=== PATIENT | female | born 1970 | race Caucasian/White ===

== ENCOUNTER 2022-08-09 05:42 | Emergency (ER) | payer MEDICAID, SELFPAY ==
[2022-08-09 05:49] VITALS: BP 124/83; PULSE 104; RESP 18; TEMP 36.8; O2SAT 96; BMI 26.6
--- NOTE | 2022-08-09 05:55 | W.ED.NAVMDI ---
HPI - Nausea/Vomiting/Diarrhea General: Chief complaint: General Medical Stated complaint: nausea, Groin pain Time Seen by Provider: 08/09/22 05:53 Source: patient Mode of arrival: ambulatory History of Present Illness: 52-year-old trans female who presents to the emergency room with complaints of groin pain. Began worsening last night, frequency of urination but no burning. Describes feeling hot and cold lightheaded states he cannot drive over 20 miles an hour. Patient mentioned spraying raid weed killer and getting some of it is in his arm or head and a single instance while spraying outside of a camper. Patient denies any trauma. No history of nephrolithiasis. No hematuria. Nausea without vomiting no diarrhea. No bulging in the groin. No precipitating injury that preceded the groin pain. Reported history of nephrolithiasis passed a stone approximately a year ago without any intervention. Patient reports previously on hormone supplementation but stopped 7 months ago, has not restarted. MD elicited complaint: nausea and vomiting Onset (ago): day(s) Associated nausea: Yes Associated abdominal pain: No Pain consistency: intermittent (Bilateral groin) Severity: mild Exacerbating factors: none Relieving factors: none Associated symtoms: Reports nausea; Denies altered mental status, anxiety, bloating, change in vision, chest pain, cough, diaphoresis, decreased urine output, dizziness, dysuria, epistaxis, fatigue, fecal incontinence, fevers/chills, headache(s), anorexia, malaise, myalgias, numbness, palpitations, rash, short of breath, syncope, tenesmus, tinnitus or weakness Review of Systems Const: Reports: chills; Denies: fever(s), fatigue, malaise or diaphoresis Eyes: Denies: change in vision ENMT: Denies: tinnitus or epistaxis Card: Denies: chest pain, palpitations, irregular heart rhythm, edema or syncope Resp: Denies: dyspnea, productive cough or non-productive cough GI: Reports: nausea; Denies: abdominal pain, vomiting, diarrhea, bloating or fecal incontinence : Reports: urinary frequency; Denies: flank pain, difficulty urinating, dysuria or urinary urgency Skin/Breast: Denies: rash or pruritus Neuro: Denies: headache(s) or dizziness Psych: Denies: anxiety PFS ED PFSH: Medical History (Updated 08/09/22 @ 07:24 by Raymundo Lake DO) Nephrolithiasis Surgical History (Updated 08/09/22 @ 06:11 by Raymundo Lake DO) History of cholecystectomy Physical Exam Const: EXAM LIMITATIONS: no altered mental status GENERAL APPEARANCE: cooperative and comfortable ORIENTATION/CONSCIOUSNESS: Yes awake, Yes oriented to person, Yes oriented to place and Yes oriented to time HENMT: COMMON NORMALS: normocephalic, atraumatic and hearing grossly normal bilaterally HEAD & SCALP: normocephalic and atraumatic Resp: COMMON NORMALS: normal respiratory effort, No retractions, No use of accessory muscles and clear to auscultation bilaterally AUSCULTATION: clear to auscultation bilaterally Cardio: COMMON NORMALS: regular rate, regular rhythm and No murmurs present (Cardio) RATE: regular rate RHYTHM: regular rhythm GI: COMMON NORMALS: Soft to palpation and No hepatosplenomegaly present AUSCULTATION: Yes normoactive bowel sounds PALPATION: Yes Soft to palpation, No Tenderness to palpation present (GI), No Guarding due to palpation present (GI) and Yes No hepatosplenomegaly present : OTHER: No evidence of inguinal hernias Extremity: COMMON NORMALS: normal to inspection, capillary refill normal, no clubbing, cyanosis or edema, no calf tenderness and no pedal edema Neuro: SENSORIUM/ORIENTATION: Yes oriented to person, Yes oriented to place and Yes oriented to time Skin: COMMON NORMALS: no rashes or lesions noted GENERAL SKIN EXAM: no rashes or lesions noted Course Vital Signs: Vital signs: Vital Signs Temperature 98.3 F 08/09/22 05:49 Pulse Rate 88 08/09/22 07:17 Respiratory Rate 16 08/09/22 06:01 Blood Pressure 114/86 08/09/22 07:17 Pulse Oximetry 95 08/09/22 07:17 Oxygen Delivery Me thod Room Air 08/09/22 07:17 MDM - Nausea/Vomiting/Diarrhea Medical Decision Making Cystitis. There was a previous visit for urethra-itis in the past patient denies any recent new partners. Patient was given 1 g of Zithromax and thousand of ceftriaxone. Will discharge home on doxycycline 1 p.o. twice daily for 14 days urine culture pending. Follow-up with primary care if not improving Medical Records I reviewed the patient's medical records. Lab Data I reviewed the patient's lab results. 08/09/22 05:55 08/09/22 05:55 Laboratory Results WBC 14.3 10^3/uL (4.0-10.0) H 08/09/22 05:55 RBC 5.64 10^6/uL (4.1-5.3) H 08/09/22 05:55 Hgb 16.1 g/dL (11.7-16.6) 08/09/22 05:55 Hct 47.4 % (42.0-52.0) 08/09/22 05:55 MCV 84.0 fl (80-94) 08/09/22 05:55 MCH 28.5 pg (28.0-34.0) 08/09/22 05:55 MCHC 34.0 g/dL (30.0-36.0) 08/09/22 05:55 RDW 12.7 % (12.1-15.1) 08/09/22 05:55 Plt Count 213 10^3/cmm (130-400) 08/09/22 05:55 MPV 9.8 fL (7.4-10.4) 08/09/22 05:55 Neut % (Auto) 75.5 % 08/09/22 05:55 Lymph % (Auto) 13.9 % 08/09/22 05:55 [place] % (Auto) 9.3 % 08/09/22 05:55 Eos % (Auto) 0.6 % 08/09/22 05:55 Baso % (Auto) 0.3 % 08/09/22 05:55 Neut # (Auto) 10.81 10^3/uL (1.8-7.7) H 08/09/22 05:55 Lymph # (Auto) 2.0 10^3/uL (0.8-4.8) 08/09/22 05:55 [place] # (Auto) 1.3 10^3/uL (0.2-0.9) H 08/09/22 05:55 Eos # (Auto) 0.1 10^3/uL (0.0-0.8) 08/09/22 05:55 Baso # (Auto) 0.0 10^3/uL (0.0-0.1) 08/09/22 05:55 Nucleated RBC % (auto) 0 % 08/09/22 05:55 Nucleated RBCs # 0.0 /100WBC 08/09/22 05:55 Sodium 137 mmol/L (136-145) 08/09/22 05:55 Potassium 3.3 mmol/L (3.5-5.1) L 08/09/22 05:55 Chloride 101 mmol/L (98-107) 08/09/22 05:55 Carbon Dioxide 21 mmol/L (22-29) L 08/09/22 05:55 Anion Gap 18.3 (5-19) 08/09/22 05:55 BUN 13 mg/dL (6-20) 08/09/22 05:55 Creatinine 1.1 mg/dL (0.7-1.2) 08/09/22 05:55 GFR Calculation 70.9 mL/min (90-130) L 08/09/22 05:55 Glucose 120 mg/dL (65-115) H 08/09/22 05:55 Calculated Osmolality 285 mOsm/kg (285-295) 08/09/22 05:55 Calcium 9.9 mg/dL (8.5-10.5) 08/09/22 05:55 Total Bilirubin 1.3 mg/dL (0.15-1.2) H 08/09/22 05:55 AST 23 U/L (0-40) 08/09/22 05:55 ALT 33 U/L (0-41) 08/09/22 05:55 Alkaline Phosphatase 87 U/L (40-130) 08/09/22 05:55 Total Protein 7.8 g/dL (6.6-8.7) 08/09/22 05:55 Albumin 4.4 g/dL (3.5-5.2) 08/09/22 05:55 Globulin 3.4 g/dL (1.3-4.6) 08/09/22 05:55 Lipase 14 U/L (13-60) 08/09/22 05:55 Urine Color Yellow (Yellow) 08/09/22 06:17 Urine Appearance Hazy (CLEAR) A 08/09/22 06:17 Urine pH 5 (5-7) 08/09/22 06:17 Ur Specific [place] 1.020 (1.005-1.030) 08/09/22 06:17 Urine Protein Trace (Negative) 08/09/22 06:17 Urine Glucose (UA) Norm (Normal) 08/09/22 06:17 Urine Ketones Negative (Negative) 08/09/22 06:17 Urine Blood Trace (Negative) H 08/09/22 06:17 Urine Nitrate Negative (Negative) 08/09/22 06:17 Urine Bilirubin Neg (Negative) 08/09/22 06:17 Urine Urobilinogen Norm mg/dL (Negative) 08/09/22 06:17 Ur Leukocyte Esterase 2+ (Negative) H 08/09/22 06:17 Urine RBC 0-4 /hpf (0-2) H 08/09/22 06:17 Urine WBC 80-100 /hpf (0-5) H 08/09/22 06:17 Ur Squamous Epith Cells 0-4 /hpf (0-5) H 08/09/22 06:17 Amorphous Sediment Not Reportable 08/09/22 06:17 Urine Bacteria 1+ /hpf (NONE) H 08/09/22 06:17 Urine Mucus 2+ /hpf 08/09/22 06:17 Discharge Plan Discharge Patient Disposition: Home Clinical Impression: Cystitis Condition: Stable Prescriptions: New doxycycline hyclate 100 mg capsule 100 mg PO BID 14 Days Qty: 28 0RF ondansetron HCl 4 mg tablet 4 mg PO Q6H PRN (Reason: nausea and vomiting) Qty: 20 0RF Discharge Orders: Discharge ED (Routine); Ordered 08/09/22 Ordered By: Raymundo Lake Discharge Diet: Usual diet Discharge Activity: Increase activity as tolerated Patient Instructions: Opioid Safety, Pain Management Activity Restrictions/Additional Instructions: You were seen today with complaints of chills and nausea as well as frequency of urination. Urine showed a bladder infection. You are given an injection of antibiotics in the emergency room and a course of oral antibiotics at the time of discharge. Complete the 14 days. If you are not improving follow-up with your primary care doctor or return to the emergency room. Stand Alone Forms: Work/School Release Coding Level of Care Code ED Corn Husker for Cholo Bhat
--- NOTE | 2022-08-09 06:00 | ECG_ITS ---
[facility] Test Date: 2022-08-09 Pat Name: Natasha Montgomery Department: Room: Gender: Male Physical Therapist Aide: : 1970 Requested By: Raymundo Suárez Order Number: [id number] Leo MD: Bret Haley M.D. Measurements Intervals [place] Rate: 104 P: 34 WA: 128 QRS: -46 QRSD: 128 T: 14 QT: 337 QTc: 444 Interpretive Statements SINUS TACHYCARDIA POSSIBLE RIGHT VENTRICULAR CONDUCTION DELAY [RSR (QR) IN V1/V2] LEFT ANTERIOR FASCICULAR BLOCK [QRS AXIS <= -45, QR IN I, RS IN II] No previous ECG available for comparison Electronically Signed On 08-09-2022 7:09:20 CDT by Bret Haley M.D. [email or web address]/[email or web address]/[id number] f
[2022-08-09 06:01] VITALS: BP 123/87; PULSE 96; RESP 16; O2SAT 96
[2022-08-09 06:05] LABS: Basophils % 0.3 %; Eosinophils # 0.1 10^3/uL (0.0-0.8); Eosinophils % 0.6 %; Hematocrit 47.4 % (42.0-52.0); Hemoglobin 16.1 g/dL (11.7-16.6); Lymphocytes % 13.9 %; Mean Corpuscular Hemoglobin 28.5 pg (28.0-34.0); Mean Platelet Volume 9.8 fL (7.4-10.4); Monocytes # 1.3 10^3/uL (0.2-0.9); Monocytes % 9.3 %; Neutrophils # 10.81 10^3/uL (1.8-7.7); Neutrophils % 75.5 %; Nucleated Red Blood Cells % 0 %; Platelet Count 213 10^3/cmm (130-400); Red Blood Count 5.64 10^6/uL (4.1-5.3); Red Cell Distribution Width 12.7 % (12.1-15.1); White Blood Count 14.3 10^3/uL (4.0-10.0)
[2022-08-09] MEDS: ondansetron 2 mg/ML SDV 2 mL 4 MG IVP (06:15)
[2022-08-09] MEDS: sodium chloride 0.9% 1,000 ML 999 ML IV (06:15)
[2022-08-09 06:23] LABS: Lipase 14 U/L (13-60)
[2022-08-09 06:25] LABS: Alanine Aminotransferase 33 U/L (0-41); Albumin Level 4.4 g/dL (3.5-5.2); Alkaline Phosphatase 87 U/L (40-130); Anion Gap 18.3 (5-19); Aspartate Amino Transferase 23 U/L (0-40); Blood Urea Nitrogen 13 mg/dL (6-20); Calcium 9.9 mg/dL (8.5-10.5); Carbon Dioxide 21 mmol/L (22-29); Chloride 101 mmol/L (98-107); Globulin 3.4 g/dL (1.3-4.6); Glomerular Filtration Rate 70.9 mL/min (90-130); Glucose 120 mg/dL (65-115); Osmolality Calculated 285 mOsm/kg (285-295); Potassium 3.3 mmol/L (3.5-5.1); Sodium 137 mmol/L (136-145); Total Bilirubin 1.3 mg/dL (0.15-1.2); Total Protein 7.8 g/dL (6.6-8.7)
[2022-08-09 07:11] LABS: Add Urine Culture? Yes; Add Urine Microscopic? YES; Bacteria Urine 1+ /hpf; Bilirubin Urine Neg (Negative); Blood Urine Trace (Negative); Glucose Urine UA Norm (Normal); Ketones Urine Negative (Negative); Leukocyte Esterase Urine 2+ (Negative); Mucus Urine 2+ /hpf; Nitrate Urine Negative (Negative); Protein Urine Trace (Negative); RBC Urine 0-4 /hpf (0-2); Squamous Epithelial Cell Urine 0-4 /hpf (0-5); Urine Appearance Hazy (CLEAR); Urine Color Yellow (Yellow); Urobilinogen Urine Norm (Negative); WBC Urine 80-100 /hpf (0-5); pH Urine 5 (5-7)
[2022-08-09 07:17] VITALS: BP 114/86; PULSE 88; O2SAT 95
[2022-08-09] MEDS: cefTRIAXone 1,000 MG in water for injection-sterile 2.1 ML 2.1 MG IM (07:32)
[2022-08-09] MEDS: azithromycin 250 mg Tablet 1000 MG PO (07:32)
--- NOTE | 2022-08-11 12:26 | DCPLANNER ---
Addendum entered by Nat Patel 08/23/22 14:59: Patient had a follow up appointment scheduled with Dr. Lim - patient did attend appointment. Original Note: in flight refueling manager called patient due to no primary care physician, case packer spoke with patient, who stated that she would like help in getting established with a primary care physician. in flight refueling manager called [facility] spoke with Cathi, gave clinic patients information. A follow up appointment was scheduled for August at 10:[address] Lim. in flight refueling manager gave patient the appointment information.
== END 2022-08-09 07:51 | disposition home or self-care (01) ==
PROVIDERS: Emergency Provider Family Medicine
DX: N30.90 Cystitis, unspecified without hematuria (principal)
CPT/HCPCS: 80053; 81001; 83690; 85025; 87077; 87086; 87186; 87491; 87591; 93005; 96361; 96372; 96374; 99284; J0696; J2405; J7030; Q0144

== ENCOUNTER → 2022-09-28 15:45 | Outpatient (BNVA) | payer MEDICAID, SELFPAY | PROVIDERS: PCP Family Medicine; Visit Provider Family Medicine | DX: E87.6 Hypokalemia (principal) | CPT/HCPCS: 80053; 80061 ==

== ENCOUNTER 2022-10-23 21:25 | Emergency (ER) | payer MEDICAID, SELFPAY ==
[2022-10-23 21:48] VITALS: BP 123/85; PULSE 92; RESP 16; TEMP 36.7; O2SAT 96; BMI 25.0
--- NOTE | 2022-10-23 22:01 | XRR_ITS ---
PROCEDURE INFORMATION: Exam: XR Left Shoulder Exam date and time: 10/23/2022 10:08 PM Age: 52 years old Clinical indication: Pain; Shoulder; Left; Additional info: Pain, injury TECHNIQUE: Imaging protocol: Radiologic exam of the left shoulder. Views: 2 or more views. COMPARISON: No relevant prior studies available. FINDINGS: Bones/joints: The glenohumeral joint is intact. Mild degenerative/hypertrophic change of the acromioclavicular joint. No widening of the AC joint. No acute fracture or other acute osseous abnormality. Soft tissues: The soft tissues are unremarkable as demonstrated. XR/XR shoulder LT min 2V* [id number] IMPRESSION: 1. Mild degenerative change of the AC joint. 2. No acute abnormality demonstrated.
--- NOTE | 2022-10-23 22:01 | W.ED.EXTPRO ---
HPI - Extremity Problem General: Chief complaint: Extremity Injury, Upper Stated complaint: Shoulder Pain Time Seen by Provider: 10/23/22 22:00 History of Present Illness: 52-year-old female comes in today with complaints of left shoulder pain. Patient works at [employer] and will had been lifting boxes and loading them yesterday and felt a strain in her left shoulder. Throughout the day patient has had worsening pain and discomfort to the left shoulder. Patient denies any falls or injuries. Patient appears nontoxic. Patient appears in moderate pain. 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 Grandmother Cancer Maternal-breast Father CAD (coronary artery disease) Other Clotting disorder Heart disease Hypertension Stroke Denies family history of Diabetes Dementia Hyperlipidemia Psychiatric illness Chronic kidney disease (CKD) Anesthesia complication Bleeding disorder Lung disease Social History (Updated 08/18/22 @ 10:39 by Yuliet Paz LPN) Smoking and tobacco status: never smoked Alcohol intake: current Alcohol intake frequency: holidays/special occasions only Substance/Drug Use: never Lives independently: Yes Marital status: Single Number of children: 1 Current occupational status: employed 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 Current gender identity: Trans [employer] Special franklin needs: No Agree to transfusion: Yes Physical Exam Const: COMMON NORMALS: alert HENMT: COMMON NORMALS: normocephalic HEAD & SCALP: normocephalic Neck/C-Spine: COMMON NORMALS: full ROM Chest: COMMONS NORMALS: normal palpation of entire chest wall Resp: COMMON NORMALS: normal respiratory effort Cardio: COMMON NORMALS: regular rate RATE: regular rate Extremity: LEFT UPPER EXTREMITY: Yes shoulder joint (AC joint tenderness, decreased range of motion) Neuro: SENSORIUM/ORIENTATION: Yes alert Skin: COMMON NORMALS: turgor normal GENERAL SKIN EXAM: turgor normal Course Vital Signs: Vital signs: Vital Signs Temperature 98.0 F 10/23/22 22:57 Pulse Rate 92 10/23/22 22:57 Respiratory Rate 16 10/23/22 22:57 Blood Pressure 123/85 10/23/22 22:57 Pulse Oximetry 96 10/23/22 22:57 Oxygen Delivery Me thod Room Air 10/23/22 21:48 MDM - Extremity (Nontraumatic) Medical Decision Making 52-year-old female patient that comes in today with complaints of left shoulder pain. On exam patient has tenderness along the AC joint of the left shoulder. Distal pulses and sensation were intact. No acute distress was noted. Differential diagnosis includes not limited to rotator cuff syndrome, AC joint arthritis, bursitis. X-ray of the shoulder noted mild degenerative changes of the AC joint. Patient's exam has significant tenderness of the AC joint. And decreased range of motion due to pain. We will treat patient for inflammation of the AC joint with steroid injection and ketorolac. Patient then will be also be managed with diclofenac twice a day for the next 10 days and recommendations for physical therapy. Patient was given a few hydrocodone for severe pain. Patient reported understanding and agreed to plan. Lab Data Radiology Impressions Shoulder X-Ray 10/23/22 22:01 IMPRESSION: 1. Mild degenerative change of the AC joint. 2. No acute abnormality demonstrated. Discharge Plan Discharge Patient Disposition: Home Clinical Impression: AC joint pain Qualifiers: Laterality: left Qualified Code(s): M25.512 - Pain in left shoulder Condition: Stable Prescriptions: New diclofenac sodium 75 mg tablet,delayed release (DR/EC) 75 mg PO BID Qty: 20 0RF hydrocodone-acetaminophen 5-325 mg tablet 1 tab PO Q6H PRN (Reason: pain (scale score 7-10)) Qty: 7 0RF No Action potassium chloride 20 mEq tablet extended release 20 meq PO DAILY Qty: 30 0RF ondansetron HCl 4 mg tablet 4 mg PO Q6H PRN (Reason: nausea and vomiting) Qty: 20 0RF Discharge Orders: Discharge ED (Routine); Ordered 10/23/22 Ordered By: Axel Easley Referrals: Juan Arredondo MD [Primary Care Provider] - Discharge Diet: Usual diet Discharge Activity: Increase activity as tolerated Patient Instructions: Arthralgia (ED) Activity Restrictions/Additional Instructions: Try to maintain normal activity is much as possible. Use acetaminophen to help with pain. Use diclofenac 75 mg 1 tablet twice a day for pain and inflammation. Use hydrocodone for severe pain. Follow-up with primary care for further instructions. Return to ED for new concerns. Stand Alone Forms: Work/School Release Coding Level of Care Code ED Principal Software Architect for Cholo Bhat
[2022-10-23] MEDS: ketorolac 30 mg/mL INJ IM (22:49)
[2022-10-23] MEDS: dexamethasone 10 mg/mL INJ IM (22:50)
[2022-10-23 22:57] VITALS: BP 123/85; PULSE 92; RESP 16; TEMP 36.7; O2SAT 96
== END 2022-10-23 22:58 | disposition home or self-care (01) ==
PROVIDERS: Emergency Provider Nurse Practitioner Family; PCP Family Medicine
DX: M25.512 Pain in left shoulder (principal); Z79.890 Hormone replacement therapy
CPT/HCPCS: 73030; 96372; 99284; J1100; J1885

== ENCOUNTER 2022-10-29 02:16 | Inpatient (IN) | payer MEDICAID, SELFPAY ==
[2022-10-29] VITALS (11 sets, daily range): BP systolic 100–135; BP diastolic 66–86; PULSE 68–93; RESP 14–22; TEMP 36.6–37.1; O2SAT 95–100; BMI 25.8
--- NOTE | 2022-10-29 02:17 | CTR_ITS ---
PROCEDURE INFORMATION: Exam: CT Abdomen And Pelvis With Contrast Exam date and time: 10/29/2022 2:31 AM Age: 52 years old Clinical indication: Nausea and vomiting; Abdominal pain; Generalized; Prior surgery; Surgery date: 6+ months; Surgery type: Gb; Patient HX: Diffuse abd pain with n/v. TECHNIQUE: Imaging protocol: Computed tomography of the abdomen and pelvis with contrast. Sagittal and coronal reformatted images were created and reviewed. Radiation optimization: All CT scans at this facility use at least one of these dose optimization techniques: automated exposure control; mA and/or kV adjustment per patient size (includes targeted exams where dose is matched to clinical indication); or iterative reconstruction. Contrast material: OMNI 350; Contrast volume: 100 ml; Contrast route: INTRAVENOUS (IV); REPORTING DATA: Count of CT and Cardiac NM exams in prior 12 months: This patient has received 0 known CTs and 0 known cardiac nuclear medicine studies in the 12 months prior to the current study. COMPARISON: No relevant prior studies available. RADIATION DOSE METRICS: Total DLP (mGy-cm): 1357.76 FINDINGS: Lungs: Dependent atelectasis in the lungs bilaterally. Pleural spaces: No pleural effusion. Heart: Visualized portions of the heart are mildly enlarged. Liver: Hypodense focus in the liver that cannot be further characterized on the current examination. This measures 7.8 mm (series 5, image 24). Gallbladder and bile ducts: Patient has had a previous cholecystectomy. No biliary ductal dilatation. Pancreas: Enlargement of the pancreas. Mild peripancreatic inflammatory change and small amount of free fluid, consistent with mild acute pancreatitis. No pancreatic ductal dilatation. Spleen: The spleen is unremarkable. Adrenal glands: The right and left adrenal glands are unremarkable. Kidneys and ureters: Simple cyst in the right kidney measuring 1.5 cm. Nonobstructing stones in the left kidney. The largest measures 4.5 mm. Simple cyst in the left kidney measuring 1.4 cm. The right and left ureters are unremarkable. Stomach and bowel: No acute abnormality in the small bowel. No acute abnormality in the colon. Ingested contents in the stomach. Appendix: Appendix not definitely visualized. No inflammatory changes in the pericecal region however. Intraperitoneal space: No free intraperitoneal air. No ascites. No loculated fluid collections to suggest an abscess. Vasculature: Minimal atherosclerotic changes in the visualized arteries. No evidence for aortic aneurysm or aortic dissection. Hepatic veins, portal veins, splenic vein, and SMV are patent. Lymph nodes: No lymphadenopathy. Urinary bladder: The bladder is unremarkable. Reproductive: The prostate gland is mildly enlarged. Nonspecific parenchymal calcifications in the prostate gland. The left testis is located in the left inguinal canal. There is a calcification in the left inguinal canal. Bones/joints: Mild degenerative changes in the visualized spine. Bone island in the right femoral head. Soft tissues: No acute abnormality in the extra-abdominal soft tissues. CT/CT abdomen pelvis w con* [id number] IMPRESSION: 1. Findings consistent with mild acute pancreatitis. 2. Hypodense focus in the liver that cannot be further characterized on the current examination. In a low-risk patient, this is most likely to be benign and no further follow-up is recommended. In a high-risk patient, follow-up MRI in 3-6 months is recommended (or earlier if warranted by the patient's specific clinical circumstances). (Reference: Hermilo) 3. Nonobstructing left renal stones. 4. The left testis is located in the left inguinal canal. There is a calcification in the left inguinal canal. 5. Incidental/nonacute findings are listed in the report. COMMENTS: Consistent with the [employer]'s Incidental Findings Committee white paper (J Am Froilan Radiol 2018): Any incidental renal lesion less than 1 cm or classified as too small to characterize, or any incidental cystic renal lesion characterized as simple-appearing, is likely benign. No follow-up imaging is recommended for these lesions per consensus recommendations based on imaging criteria. REFERENCES: Hermilo WOODALL, et al. Management of Incidental Liver Lesions on CT: A White Paper of the ACR Incidental Findings Committee. J Am Froilan Radiol. 2017;14(11):4408-1523.
--- NOTE | 2022-10-29 02:25 | ED_ITS ---
HPI - Abdominal Pain General: Chief Complaint: Abdominal Pain Stated Complaint: ABD Pain Time Seen by Provider: 10/29/22 02:18 Source: patient and EMS Mode of arrival: EMS Limitations: no limitations History of Present Illness: 52-year-old male transitioning to female states that he had injured his keanu ulders been taking [place] and tonight he started having abdominal pain he states he had nausea vomiting and right lower quadrant pain. States pain sharp in nature worse with movement and with palpation. He rates the pain a 7 out of 10 denies any fevers. 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 Grandmother Cancer Maternal-breast Father CAD (coronary artery disease) Other Clotting disorder Heart disease Hypertension Stroke Denies family history of Diabetes Dementia Hyperlipidemia Psychiatric illness Chronic kidney disease (CKD) Anesthesia complication Bleeding disorder Lung disease Social History Smoking and tobacco status: never smoked Alcohol intake: current Alcohol intake frequency: holidays/special occasions only Substance/Drug Use: never Lives independently: Yes Marital status: Single Number of children: 1 Current occupational status: employed Current occupation: [employer] Current gender identity: Trans [id number] Special franklin needs: No Agree to transfusion: Yes Physical Exam Const: COMMON NORMALS: no acute distress, patient oriented x3 and healthy appearing HENMT: COMMON NORMALS: normocephalic and atraumatic HEAD & SCALP: normocephalic and atraumatic Eye: COMMON NORMALS: conjunctivae normal CONJUNCTIVA: Yes conjunctivae normal Neck/C-Spine: COMMON NORMALS: supple Chest: COMMONS NORMALS: normal inspection of the chest Resp: COMMON NORMALS: normal respiratory effort Cardio: COMMON NORMALS: regular rate, regular rhythm and No murmurs present (Cardio) RATE: regular rate RHYTHM: regular rhythm GI: COMMON NORMALS: Soft to palpation, non-tender and no masses PALPATION: Yes Soft to palpation and Yes Tenderness to palpation present (GI) Details: RLQ Extremity: COMMON NORMALS: normal to inspection and full ROM Neuro: COMMON NORMALS: patient oriented x3, moves all extremities and no focal motor deficits Psych: COMMON NORMALS: mental status grossly normal, Normal thought process present and cooperative THOUGHT PROCESS: Normal thought process present Skin: COMMON NORMALS: no rashes or lesions noted and no wounds GENERAL SKIN EXAM: no rashes or lesions noted Course Vital Signs: Vital signs: Vital Signs Temperature 98.7 F 10/29/22 02:16 Pulse Rate 91 10/29/22 02:49 Respiratory Rate 18 10/29/22 02:56 Blood Pressure 133/86 10/29/22 02:49 Pulse Oximetry 100 10/29/22 02:56 Oxygen Delivery Me thod Room Air 10/29/22 02:49 MDM - Abdominal Pain Medical Decision Making Patient presents here with pancreatitis triglycerides are normal no signs of biliary obstruction I spoke to the hospitalist will admit at this time. Medical Records I reviewed the patient's medical records. Lab Data I reviewed the patient's lab results. 10/29/22 02:26 10/29/22 02:26 Labs/Radiology: Radiology Impressions Abdomen/Pelvis CT 10/29/22 02:17 IMPRESSION: 1. Findings consistent with mild acute pancreatitis. 2. Hypodense focus in the liver that cannot be further characterized on the current examination. In a low-risk patient, this is most likely to be benign and no further follow-up is recommended. In a high-risk patient, follow-up MRI in 3-6 months is recommended (or earlier if warranted by the patient's specific clinical circumstances). (Reference: Hermilo) 3. Nonobstructing left renal stones. 4. The left testis is located in the left inguinal canal. There is a calcification in the left inguinal canal. 5. Incidental/nonacute findings are listed in the report. COMMENTS: Consistent with the [place] [employer]'s Incidental Findings Committee white paper (J Am Froilan Radiol 2018): Any incidental renal lesion less than 1 cm or classified as too small to characterize, or any incidental cystic renal lesion characterized as simple-appearing, is likely benign. No follow-up imaging is recommended for these lesions per consensus recommendations based on imaging criteria. REFERENCES: Hermilo WOODALL, et al. Management of Incidental Liver Lesions on CT: A White Paper of the ACR Incidental Findings Committee. J Am Froilan Radiol. 2017;14(11):7645-8178. Laboratory Results WBC 14.3 10^3/uL (4.0-10.0) H 10/29/22 02:26 RBC 5.35 10^6/uL (4.1-5.3) H 10/29/22 02:26 Hgb 15.7 g/dL (11.7-16.6) 10/29/22 02:26 Hct 46.3 % (42.0-52.0) 10/29/22 02:26 MCV 86.5 fl (80-94) 10/29/22 02:26 MCH 29.3 pg (28.0-34.0) 10/29/22 02:26 MCHC 33.9 g/dL (30.0-36.0) 10/29/22 02:26 RDW 12.9 % (12.1-15.1) 10/29/22 02:26 Plt Count 229 10^3/cmm (130-400) 10/29/22 02:26 MPV 10.1 fL (7.4-10.4) 10/29/22 02:26 Neut % (Auto) 87.8 % 10/29/22 02:26 Lymph % (Auto) 6.0 % 10/29/22 02:26 [place] % (Auto) 5.2 % 10/29/22 02:26 Eos % (Auto) 0.3 % 10/29/22 02:26 Baso % (Auto) 0.2 % 10/29/22 02:26 Neut # (Auto) 12.55 10^3/uL (1.8-7.7) H 10/29/22 02:26 Lymph # (Auto) 0.9 10^3/uL (0.8-4.8) 10/29/22 02:26 [place] # (Auto) 0.7 10^3/uL (0.2-0.9) 10/29/22 02:26 Eos # (Auto) 0.1 10^3/uL (0.0-0.8) 10/29/22 02:26 Baso # (Auto) 0.0 10^3/uL (0.0-0.1) 10/29/22 02:26 Nucleated RBC % (auto) 0 % 10/29/22 02:26 Nucleated RBCs # 0.0 /100WBC 10/29/22 02:26 Sodium 136 mmol/L (136-145) 10/29/22 02:26 Potassium 4.0 mmol/L (3.5-5.1) 10/29/22 02:26 Chloride 101 mmol/L (98-107) 10/29/22 02:26 Carbon Dioxide 24 mmol/L (22-29) 10/29/22 02:26 Anion Gap 15.0 (5-19) 10/29/22 02:26 BUN 11 mg/dL (6-20) 10/29/22 02:26 Creatinine 1.0 mg/dL (0.7-1.2) 10/29/22 02:26 GFR Calculation 79.1 mL/min (90-130) L 10/29/22 02:26 Glucose 117 mg/dL (65-115) H 10/29/22 02:26 Calculated Osmolality 282 mOsm/kg (285-295) L 10/29/22 02:26 Calcium 8.8 mg/dL (8.5-10.5) 10/29/22 02:26 Total Bilirubin 0.7 mg/dL (0.15-1.2) 10/29/22 02:26 AST 25 U/L (0-40) 10/29/22 02:26 ALT 42 U/L (0-41) H 10/29/22 02:26 Alkaline Phosphatase 73 U/L (40-130) 10/29/22 02:26 Total Protein 7.4 g/dL (6.6-8.7) 10/29/22 02:26 Albumin 4.5 g/dL (3.5-5.2) 10/29/22 02:26 Globulin 2.9 g/dL (1.3-4.6) 10/29/22 02:26 Triglycerides 130 mg/dL (0-150) 10/29/22 02:26 Lipase > 6503 U/L (13-60) H 10/29/22 02:26 Urine Color Yellow (Yellow) 10/29/22 02:53 Urine Appearance Clear (CLEAR) 10/29/22 02:53 Urine pH 9 (5-7) H 10/29/22 02:53 Ur Specific [place] 1.010 (1.005-1.030) 10/29/22 02:53 Urine Protein Neg (Negative) 10/29/22 02:53 Urine Glucose (UA) Norm (Normal) 10/29/22 02:53 Urine Ketones 1+ (Negative) H 10/29/22 02:53 Urine Blood Neg (Negative) 10/29/22 02:53 Urine Nitrate Negative (Negative) 10/29/22 02:53 Urine Bilirubin Neg (Negative) 10/29/22 02:53 Prot Sulfosalicylic Acd Negative (Negative) 10/29/22 02:53 Urine Urobilinogen Norm mg/dL (Negative) 10/29/22 02:53 Ur Leukocyte Esterase Trace (Negative) H 10/29/22 02:53 Urine RBC None /hpf (0-2) 10/29/22 02:53 Urine WBC 0-4 /hpf (0-5) H 10/29/22 02:53 Ur Squamous Epith Cells 5-10 /hpf (0-5) H 10/29/22 02:53 Amorphous Sediment Not Reportable 10/29/22 02:53 Urine Bacteria Trace /hpf (NONE) 10/29/22 02:53 Ethyl Alcohol < 10 mg/dL (0-10) 10/29/22 02:26 Discharge Plan Discharge Patient Disposition: Admitted As Inpatient Clinical Impression: Pancreatitis Condition: Stable Coding Level of Care Code ED Regulatory Affairs Internship for [facility]
[2022-10-29] MEDS: iohexol 350 mg/mL 500 mL Btl (per mL) IV (02:32)
[2022-10-29 02:33] LABS: Basophils % 0.2 %; Eosinophils # 0.1 10^3/uL (0.0-0.8); Eosinophils % 0.3 %; Hematocrit 46.3 % (42.0-52.0); Hemoglobin 15.7 g/dL (11.7-16.6); Lymphocytes # 0.9 10^3/uL (0.8-4.8); Mean Corpuscular HGB Conc 33.9 g/dL (30.0-36.0); Mean Corpuscular Hemoglobin 29.3 pg (28.0-34.0); Mean Corpuscular Volume 86.5 fl (80-94); Mean Platelet Volume 10.1 fL (7.4-10.4); Monocytes # 0.7 10^3/uL (0.2-0.9); Monocytes % 5.2 %; Neutrophils # 12.55 10^3/uL (1.8-7.7); Neutrophils % 87.8 %; Nucleated Red Blood Cells % 0 %; Platelet Count 229 10^3/cmm (130-400); Red Blood Count 5.35 10^6/uL (4.1-5.3); Red Cell Distribution Width 12.9 % (12.1-15.1); White Blood Count 14.3 10^3/uL (4.0-10.0)
[2022-10-29 02:50] LABS: Alanine Aminotransferase 42 U/L (0-41); Albumin Level 4.5 g/dL (3.5-5.2); Alkaline Phosphatase 73 U/L (40-130); Aspartate Amino Transferase 25 U/L (0-40); Blood Urea Nitrogen 11 mg/dL (6-20); Calcium 8.8 mg/dL (8.5-10.5); Carbon Dioxide 24 mmol/L (22-29); Chloride 101 mmol/L (98-107); Creatinine Clr Calc Pharmacy 89.8555; Globulin 2.9 g/dL (1.3-4.6); Glomerular Filtration Rate 79.1 mL/min (90-130); Glucose 117 mg/dL (65-115); Osmolality Calculated 282 mOsm/kg (285-295); Sodium 136 mmol/L (136-145); Total Bilirubin 0.7 mg/dL (0.15-1.2); Total Protein 7.4 g/dL (6.6-8.7)
[2022-10-29] MEDS: ondansetron 2 mg/ML SDV 2 mL 4 MG IVP ×2 (02:54→15:48)
[2022-10-29] MEDS: HYDROmorphone 1 mg/mL INJ 1 mL 0.5 MG IVP (02:56)
[2022-10-29 03:05] LABS: Bilirubin Urine Neg (Negative); Blood Urine Neg (Negative); Glucose Urine UA Norm (Normal); Ketones Urine 1+ (Negative); Leukocyte Esterase Urine Trace (Negative); Nitrate Urine Negative (Negative); Protein Urine Neg (Negative); Urine Appearance Clear (CLEAR); Urine Color Yellow (Yellow); Urobilinogen Urine Norm (Negative); pH Urine 9 (5-7)
[2022-10-29 03:06] LABS: Add Urine Microscopic? YES; Sulfosalicylic Acid Urine Negative (Negative)
[2022-10-29 03:08] LABS: Bacteria Urine TRACE /hpf; WBC Urine 0-4 /hpf (0-5)
[2022-10-29 03:33] LABS: Triglycerides 130 mg/dL (0-150)
[2022-10-29 03:36] LABS: Alcohol Level < 10 mg/dL (0-10)
--- NOTE | 2022-10-29 04:42 | P.HP_ITS ---
Providers/Chief Complaint Admitting Physician: Mahad Oconnell MD Primary Care Provider: Juan Arredondo MD Chief Complaint: ABD Pain History of Present Illness Natasha Montgomery is a 52 year old presenting complaining of abdominal pain for the last day, with nausea and vomiting. Most of the discomfort is in the epigastric area. No hematemesis, blood in stool, black or tarry stool. Had similar episode before her gallbladder was removed. No fever. Denies any alcohol intake. Recently having some shoulder pain and took a hydrocodone, and was worried this that caused the pancreatitis. Review of Systems General: Reports: 10 or more systems reviewed and unremarkable except in HPI and below Card: Denies: chest pain Resp: Denies: dyspnea GI: Reports: abdominal pain, nausea and vomiting; Denies: hematemesis, hematochezia or melena Medications/Allergies Home Medications Medication Instructions Recorded Confirmed Last Taken Type ondansetron HCl 4 mg tablet 4 mg PO Q6H PRN nausea and 08/09/22 08/18/22 Unknown Rx vomiting #20 tabs potassium chloride 20 mEq 20 meq PO DAILY #30 tabs 08/18/22 08/18/22 Unknown Rx tablet,extended release diclofenac sodium 75 mg 75 mg PO BID #20 tabs 10/23/22 Unknown Rx tablet,delayed release hydrocodone 5 mg-acetaminophen 325 1 tab PO Q6H PRN pain (scale score 10/23/22 Unknown Rx mg tablet 7-10) #7 tabs Allergies Allergy/AdvReac Type Severity Reaction Status Date / Time VANILLA HADLEY Allergy ALGY-Difficulty Uncoded 10/23/22 21:48 Breathing PFSH Acute PFSH: Medical History Hypoglycemia Nephrolithiasis Transgender man on hormone therapy Surgical History History of cholecystectomy History of ear surgery cosmetic Family History Family/Other Cancer Maternal aunt-unknown Mother No problems noted. Grandmother Cancer Maternal-breast Father CAD (coronary artery disease) Other Clotting disorder Heart disease Hypertension Stroke Denies family history of Diabetes Dementia Hyperlipidemia Psychiatric illness Chronic kidney disease (CKD) Anesthesia complication Bleeding disorder Lung disease Social History Smoking and tobacco status: never smoked Alcohol intake: current Alcohol intake frequency: holidays/special occasions only Substance/Drug Use: never Lives independently: Yes Marital status: Single Number of children: 1 Current occupational status: employed Current occupation: [employer] Current gender identity: Trans [id number] Special franklin needs: No Agree to transfusion: Yes Vitals/I&O/Wt Last Vital Signs Temp 98.7 F 10/29/22 04:37 Pulse 93 10/29/22 04:37 Resp 20 H 10/29/22 04:37 BP 117/81 10/29/22 04:37 Pulse Ox 95 10/29/22 04:37 O2 Del Method Room Air 10/29/22 04:37 Weight last 48 hrs Weight 77.111 kg Physical Exam Narrative: General exam, patient complaining of significant abdominal pain HEENT: Atraumatic and normocephalic. Pupils equally round. Oropharynx clear. Neck is supple no lymphadenopathy thyromegaly Cardiovascular regular rate and rhythm, no murmur Lungs clear no wheezing or crackles Abdomen tenderness epigastric area. Positive bowel sounds. exam was deferred Extremities no cyanosis clubbing or edema, cap refill brisk Skin no rash Data 10/29/22 02:26 10/29/22 02:26 Other Labs: LFTs are normal with exception of ALT 42 Lipase greater than 6500 Urinalysis 0-4 whites, 5-10 squamous Alcohol level less than [address] which I reviewed demonstrates pancreatic inflammation. There is also note on the report regarding a hypodense focus in the liver, consider fo llow-up, and nonobstructing left renal stones. Left testes is also noted to be in the inguinal canal A&P Assessment and plan (1) Pancreatitis: Clear liquids Nausea control Pain control with morphine Assess risk factors. In regards to medicine she is also on Aldactone and estradiol. Estradiol and diclofenac appears to be occasionally associated with pancreatitis on an Epocrates search. Denies any chronic alcohol use or even a drink of alcohol in the last several years. Triglyceride level was checked and normal Repeat electrolytes and lipase in the morning Plan Other medical problems as outlined in past medical history Full code Lovenox for DVT prophylaxis Attestations Medical Necessity Statement*: Will need greater than 2 midnight stay for evaluation and treatment of acute pancreatitis Diagnoses Pancreatitis K85.90 Time Spent (min) 35
[2022-10-29] MEDS: sodium chloride 0.9% 1,000 ML 125 ML IV ×3 (05:00→20:39)
[2022-10-29] MEDS: enoxaparin 40 mg/0.4 mL Syringe SUBCUT (05:02)
[2022-10-29] MEDS: pantoprazole 40 mg SDV IVP (05:29)
[2022-10-29] MEDS: morphine 4 mg/mL SDV 1 mL 2 MG IVP ×3 (05:46→19:48)
[2022-10-29] MEDS: acetaminophen 325 mg Tablet 650 MG PO (08:30)
[2022-10-29] MEDS: HYDROcodone-acetaminophen 5-325 mg Tablet 1 TAB PO ×2 (09:20→18:03)
--- NOTE | 2022-10-29 17:58 | PC.NURSE ---
Patient took home meds from purse, Estradiol 2mg and Spironolactone 50mg. Patient notified nurse at the time of this note, but was uncertain about the time meds were taken.
[2022-10-30] VITALS (7 sets, daily range): BP systolic 107–115; BP diastolic 67–76; PULSE 71–93; RESP 16–20; TEMP 36.2–37.1; O2SAT 93–98
[2022-10-30] MEDS: ondansetron 2 mg/ML SDV 2 mL 4 MG IVP (00:44)
[2022-10-30] MEDS: HYDROcodone-acetaminophen 5-325 mg Tablet 1 TAB PO ×4 (00:45→20:24)
[2022-10-30 04:10] LABS: Basophils % 0.2 %; Eosinophils # 0.1 10^3/uL (0.0-0.8); Eosinophils % 1.3 %; Hematocrit 41.6 % (42.0-52.0); Hemoglobin 13.9 g/dL (11.7-16.6); Lymphocytes # 0.9 10^3/uL (0.8-4.8); Lymphocytes % 9.8 %; Mean Corpuscular HGB Conc 33.4 g/dL (30.0-36.0); Mean Corpuscular Hemoglobin 29.8 pg (28.0-34.0); Mean Corpuscular Volume 89.1 fl (80-94); Mean Platelet Volume 9.8 fL (7.4-10.4); Monocytes # 0.7 10^3/uL (0.2-0.9); Monocytes % 7.5 %; Neutrophils # 7.69 10^3/uL (1.8-7.7); Neutrophils % 80.8 %; Nucleated Red Blood Cells % 0 %; Platelet Count 161 10^3/cmm (130-400); Red Blood Count 4.67 10^6/uL (4.1-5.3); Red Cell Distribution Width 13.5 % (12.1-15.1); White Blood Count 9.5 10^3/uL (4.0-10.0)
[2022-10-30 04:35] LABS: Alanine Aminotransferase 76 U/L (0-41); Albumin Level 3.4 g/dL (3.5-5.2); Alkaline Phosphatase 91 U/L (40-130); Aspartate Amino Transferase 58 U/L (0-40); Blood Urea Nitrogen 6 mg/dL (6-20); Calcium 7.4 mg/dL (8.5-10.5); Carbon Dioxide 21 mmol/L (22-29); Chloride 109 mmol/L (98-107); Globulin 2.1 g/dL (1.3-4.6); Glomerular Filtration Rate 89.3 mL/min (90-130); Glucose 81 mg/dL (65-115); Osmolality Calculated 281 mOsm/kg (285-295); Sodium 137 mmol/L (136-145); Total Bilirubin 0.6 mg/dL (0.15-1.2); Total Protein 5.5 g/dL (6.6-8.7)
[2022-10-30 04:44] LABS: Lipase 296 U/L (13-60)
[2022-10-30] MEDS: sodium chloride 0.9% 1,000 ML 125 ML IV ×3 (04:44→22:13)
[2022-10-30] MEDS: enoxaparin 40 mg/0.4 mL Syringe SUBCUT (04:45)
[2022-10-30] MEDS: pantoprazole 40 mg SDV IVP (05:00)
--- NOTE | 2022-10-30 17:32 | PM.PN ---
Subjective Subjective: Patient has continued to complain of abdominal pain, nausea has improved no vomiting.He was also complaining of generalized body pain. Medications: Medication Review Details: Generic Name Dose Route Start Last Admin Trade Name Ha PRN Reason Stop Dose Admin Acetaminophen 650 mg 10/29/22 04:39 10/29/22 08:30 Acetaminophen 32 5 Mg Tablet PO 650 mg Q6H PRN Administration Mild/Mod Pain Or Temp >/= 101 Hydrocodone Bitart /Acetaminophen 1 tab 10/29/22 08:48 10/30/22 15:05 Hydrocodone-Acet aminophen 5-325 Mg Tablet PO 1 tab Q4H PRN Administration MODERATE PAIN Enoxaparin Sodium 40 mg 10/29/22 04:45 10/30/22 04:45 Enoxaparin 40 Mg /0.4 Ml Syringe SUBCUT 40 mg Q24H TERRENCE Administration Sodium Chloride 1,000 mls @ 125 m ls/hr 10/29/22 04:45 10/30/22 14:50 Sodium Chloride 0.9% IV 125 mls/hr .Q8H TERRENCE Administration Morphine Sulfate 2 mg 10/29/22 04:39 10/29/22 19:48 Morphine 4 Mg/Ml Sdv 1 Ml IVP 2 mg Q4H PRN Administration SEVERE PAIN Ondansetron HCl 4 mg 10/29/22 04:39 10/30/22 00:44 Ondansetron 2 Mg /Ml Sdv 2 Ml IVP 4 mg Q6H PRN Administration vomiting, or N/V if npo Pantoprazole Sodiu m 40 mg 10/29/22 04:45 10/30/22 05:00 Pantoprazole 40 Mg Sdv IVP 40 mg Q24H TERRENCE Administration Vitals/I&O/Wt Last Vital Signs Temp 97.3 F L 10/30/22 12:00 Pulse 92 10/30/22 12:00 Resp 18 10/30/22 12:00 BP 111/76 10/30/22 12:00 Pulse Ox 93 10/30/22 12:00 O2 Del Method Room Air 10/30/22 12:00 10/30/22 10/30/22 10/30/22 06:59 14:59 22:59 Intake Total 1000 / 3916.250 1480 / 1480 Output Total 1440 / 2740 1450 / 1450 Balance -440 / 1176.250 30 / 30 Weight last 48 hrs Weight 77.111 kg Physical Exam HENMT: COMMON NORMALS: normocephalic and atraumatic HEAD & SCALP: normocephalic and atraumatic Resp: COMMON NORMALS: clear to auscultation bilaterally EFFORT & INSPECTION: Yes symmetric chest movement AUSCULTATION: clear to auscultation bilaterally Cardio: COMMON NORMALS: regular rate, regular rhythm, S1 normal heart sound present, S2 normal heart sound present, No gallops present (Cardio), No murmurs present (Cardio), No rub (Cardio) and Peripheral pulses 2+ throughout RATE: regular rate RHYTHM: regular rhythm HEART SOUNDS: S1 normal heart sound present and S2 normal heart sound present PERIPHERAL PULSES: Peripheral pulses 2+ throughout GI: RECTAL EXAM: Yes deferred OTHER: Epigastric abdominal tenderness present. Extremity: COMMON NORMALS: no clubbing, cyanosis or edema and no pedal edema Data 10/30/22 03:33 10/30/22 03:33 A&P Assessment and plan (1) Pancreatitis: Diet has been advanced to GI soft. Nausea control Pain control with morphine Assess risk factors. In regards to medicine she is also on Aldactone and estradiol. Estradiol and diclofenac appears to be occasionally associated with pancreatitis on an Epocrates search. Denies any chronic alcohol use or even a drink of alcohol in the last several years. Triglyceride level was checked and normal Repeat electrolytes and lipase in the morning Plan Other medical problems as outlined in past medical history Full code Lovenox for DVT prophylaxis Attestations Medical Necessity Statement*: Needs to be in hospital for the management of acute pancreatitis need for pain control. Coding Level of Care Code Acute Code for [facility] Diagnoses Pancreatitis K85.90
[2022-10-30] MEDS: morphine 4 mg/mL SDV 1 mL 2 MG IVP (22:28)
[2022-10-31] VITALS (10 sets, daily range): BP systolic 106–122; BP diastolic 67–82; PULSE 74–90; RESP 16–18; TEMP 36.9–37.4; O2SAT 94–97
[2022-10-31] MEDS: HYDROcodone-acetaminophen 5-325 mg Tablet 1 TAB PO ×5 (01:06→20:38)
[2022-10-31] MEDS: morphine 4 mg/mL SDV 1 mL 2 MG IVP ×4 (02:19→23:21)
[2022-10-31] MEDS: pantoprazole 40 mg SDV IVP (04:09)
[2022-10-31] MEDS: enoxaparin 40 mg/0.4 mL Syringe SUBCUT (04:10)
[2022-10-31] MEDS: sodium chloride 0.9% 1,000 ML 125 ML IV ×3 (05:53→21:29)
--- NOTE | 2022-10-31 14:31 | XRR_ITS ---
PROCEDURE INFORMATION: Exam: XR Abdomen Exam date and time: 10/31/2022 2:49 PM Age: 52 years old Clinical indication: Abdominal pain; Generalized; Additional info: Evaluate for ileus TECHNIQUE: Imaging protocol: Radiologic exam of the abdomen. Views: Frontal supine view of the abdomen. 1 View. COMPARISON: CT abdomen pelvis w con* [id number] 10/29/2022 2:31 AM FINDINGS: Gastrointestinal tract: Gas and stool within the colon predominantly with moderate stool in the right colon and mild increased gas in the transverse colon. No abnormal, dilated small bowel or obstruction. Intraperitoneal space: Surgical clips in the right upper quadrant. No indication of free air. Bones/joints: No acute osseous abnormality. XR/XR abdomen 1V* [id number] IMPRESSION: Nonspecific nonobstructive bowel gas pattern with moderate stool in the right colon and mild increased gas in the transverse colon. No significant ileus or obstruction otherwise.
--- NOTE | 2022-10-31 14:33 | PM.PN ---
Subjective Subjective: Complains of worsened abdominal pain. Radiating into back. Not adequately controlled with morphine today. Tmax 99 Fahrenheit. Feels nauseous but has not vomited. No bowel movement but passing flatus. Medications: Reviewed: Yes Medication Review Details: Generic Name Dose Route Start Last Admin Trade Name Freq PRN Reason Stop Dose Admin Acetaminophen 650 mg 10/29/22 04:39 10/29/22 08:30 Acetaminophen 32 5 Mg Tablet PO 650 mg Q6H PRN Administration Mild/Mod Pain Or Temp >/= 101 Hydrocodone Bitart /Acetaminophen 1 tab 10/29/22 08:48 10/30/22 15:05 Hydrocodone-Acet aminophen 5-325 Mg Tablet PO 1 tab Q4H PRN Administration MODERATE PAIN Enoxaparin Sodium 40 mg 10/29/22 04:45 10/30/22 04:45 Enoxaparin 40 Mg /0.4 Ml Syringe SUBCUT 40 mg Q24H TERRENCE Administration Sodium Chloride 1,000 mls @ 125 m ls/hr 10/29/22 04:45 10/30/22 14:50 Sodium Chloride 0.9% IV 125 mls/hr .Q8H TERRENCE Administration Morphine Sulfate 2 mg 10/29/22 04:39 10/29/22 19:48 Morphine 4 Mg/Ml Sdv 1 Ml IVP 2 mg Q4H PRN Administration SEVERE PAIN Ondansetron HCl 4 mg 10/29/22 04:39 10/30/22 00:44 Ondansetron 2 Mg /Ml Sdv 2 Ml IVP 4 mg Q6H PRN Administration vomiting, or N/V if npo Pantoprazole Sodiu m 40 mg 10/29/22 04:45 10/30/22 05:00 Pantoprazole 40 Mg Sdv IVP 40 mg Q24H TERRENCE Administration Vitals/I&O/Wt Last Vital Signs Temp 99.0 F 10/31/22 10:39 Pulse 90 10/31/22 10:39 Resp 17 10/31/22 10:39 BP 120/78 10/31/22 10:39 Pulse Ox 94 10/31/22 10:39 O2 Del Method Room Air 10/31/22 10:39 10/30/22 10/31/22 10/31/22 22:59 06:59 14:59 Intake Total 1602.917 / 3082.917 1125 / 4207.917 1831.667 / 1831.667 Output Total 400 / 1850 1375 / 3225 850 / 850 Balance 1202.917 / 1232.917 -250 / 982.917 981.667 / 981.667 Physical Exam Narrative: General: Sitting on side of bed, complaining of pain HEENT: PERRLA, pupils bilaterally equal and reactive, pallors not present Chest: Normal vesicular breath sounds, no added sounds, equal good air entry bilaterally CVS: S1-S2 regular, no murmurs, no tachycardia, no gallops, no rubs Abdomen: Soft, mildly distended, tender to palpation in the epigastric region Neuro: No focal deficits, no facial deformity, AO x3, power 5/5 in all limbs Data 10/30/22 03:33 10/30/22 03:33 A&P Assessment and plan (1) Pancreatitis: Diet has been advanced to GI soft yesterday, however patient complaining of worsening pain today. Change back to clear liquid diet as tolerated. Add Toradol 15 mg IV every 8 hours for pain management. Continue morphine 2 mg IV every 4 hours as needed in addition to p.o. Dilaudid. If pain fails to respond appropriately will likely consider adding fentanyl patch. Nausea persisting with IV Zofran, will add Reglan as needed. Patient is passing flatus, however has not had a bowel movement. On abdominal exam today she noted noted to be slightly distended, will check abdominal x-ray to evaluate for any developing ileus in the interim. Tmax 99 Fahrenheit, will monitor for interim development of any fevers. Unclear precipitant of acute pancreatitis currently. Patient denies using any alcohol recently. Triglyceride within range. CT of the abdomen shows postcholecystectomy state without dilatation of the biliary system. LFTs are noted to be trending up today slightly, will closely monitor, with any increase in T. bili or alkaline phosphatase will consider MRCP. Continue normal saline at 125 cc an hour Plan Full code Lovenox for DVT prophylaxis Continue Protonix 40 mg IV every 24 hours Attestations Medical Necessity Statement*: Needs continued admission for management of pain associated with acute pancreatitis, still needing IV pain medication, abdominal noted to be distended today, needs imaging to evaluate for developing ileus. Change diet back to clear liquid Coding Level of Care Code Acute Code for [facility] Diagnoses Pancreatitis K85.90
[2022-10-31] MEDS: ketorolac 30 mg/mL INJ 15 MG IVP (20:46)
[2022-11-01] VITALS (11 sets, daily range): BP systolic 105–140; BP diastolic 69–80; PULSE 73–87; RESP 16–18; TEMP 36.4–37; O2SAT 93–97
[2022-11-01] MEDS: HYDROcodone-acetaminophen 5-325 mg Tablet 1 TAB PO ×3 (01:41→08:58)
[2022-11-01] MEDS: morphine 4 mg/mL SDV 1 mL 2 MG IVP ×3 (03:45→18:28)
[2022-11-01] MEDS: enoxaparin 40 mg/0.4 mL Syringe SUBCUT (03:46)
[2022-11-01] MEDS: pantoprazole 40 mg SDV IVP (03:46)
[2022-11-01] MEDS: sodium chloride 0.9% 1,000 ML 125 ML IV ×3 (05:00→22:16)
[2022-11-01] MEDS: ketorolac 30 mg/mL INJ 15 MG IVP ×3 (05:00→22:45)
[2022-11-01 06:40] LABS: Basophils % 0.2 %; Eosinophils # 0.2 10^3/uL (0.0-0.8); Hematocrit 39.9 % (42.0-52.0); Hemoglobin 13.1 g/dL (11.7-16.6); Lymphocytes # 0.9 10^3/uL (0.8-4.8); Lymphocytes % 9.8 %; Mean Corpuscular HGB Conc 32.8 g/dL (30.0-36.0); Mean Corpuscular Volume 88.5 fl (80-94); Mean Platelet Volume 9.7 fL (7.4-10.4); Monocytes # 0.8 10^3/uL (0.2-0.9); Monocytes % 9.7 %; Neutrophils # 6.77 10^3/uL (1.8-7.7); Neutrophils % 77.7 %; Nucleated Red Blood Cells % 0 %; Platelet Count 173 10^3/cmm (130-400); Red Blood Count 4.51 10^6/uL (4.1-5.3); Red Cell Distribution Width 13.7 % (12.1-15.1); White Blood Count 8.7 10^3/uL (4.0-10.0)
[2022-11-01 07:05] LABS: Alanine Aminotransferase 39 U/L (0-41); Albumin Level 3.3 g/dL (3.5-5.2); Alkaline Phosphatase 114 U/L (40-130); Anion Gap 12.7 (5-19); Aspartate Amino Transferase 17 U/L (0-40); Blood Urea Nitrogen 6 mg/dL (6-20); Calcium 7.5 mg/dL (8.5-10.5); Carbon Dioxide 19 mmol/L (22-29); Chloride 108 mmol/L (98-107); Creatinine Clr Calc Pharmacy 112.3194; Globulin 2.2 g/dL (1.3-4.6); Glomerular Filtration Rate 102.3 mL/min (90-130); Glucose 140 mg/dL (65-115); Osmolality Calculated 282 mOsm/kg (285-295); Potassium 3.7 mmol/L (3.5-5.1); Sodium 136 mmol/L (136-145); Total Bilirubin 0.6 mg/dL (0.15-1.2); Total Protein 5.5 g/dL (6.6-8.7)
--- NOTE | 2022-11-01 13:21 | PC.NURSE ---
Patient discharged to home with tennis shoes and cell phone, accompanied by sister. Ambulated to vehicle outside, no s/s of distress. Discharge information given to patient, patient verbalized understanding of diet restrictions until told otherwise by surgeon at [facility] in [place].
[2022-11-01] MEDS: fentaNYL 25 mcg Patch 1 PATCH TRANSDERMA (13:48)
--- NOTE | 2022-11-01 14:43 | PC.NURSE ---
patient needs to contact security before discharge to collect belongings
--- NOTE | 2022-11-01 18:21 | PM.PN ---
Subjective Subjective: States that she is still continuing to have pain in spite of adding the IV Toradol to already receiving IV morphine. Does not have an appetite though did not vomit for clear diet. Passing flatus. Abdominal x-ray taken yesterday showed nonspecific obstructive bowel gas pattern with moderate stool in the right colon and increased gas in the transverse colon. No significant ileus or obstruction was noted otherwise. Medications: Reviewed: Yes Medication Review Details: Generic Name Dose Route Start Last Admin Trade Name Freq PRN Reason Stop Dose Admin Acetaminophen 650 mg 10/29/22 04:39 10/29/22 08:30 Acetaminophen 32 5 Mg Tablet PO 650 mg Q6H PRN Administration Mild/Mod Pain Or Temp >/= 101 Hydrocodone Bitart /Acetaminophen 1 tab 10/29/22 08:48 10/30/22 15:05 Hydrocodone-Acet aminophen 5-325 Mg Tablet PO 1 tab Q4H PRN Administration MODERATE PAIN Enoxaparin Sodium 40 mg 10/29/22 04:45 10/30/22 04:45 Enoxaparin 40 Mg /0.4 Ml Syringe SUBCUT 40 mg Q24H TERRENCE Administration Sodium Chloride 1,000 mls @ 125 m ls/hr 10/29/22 04:45 10/30/22 14:50 Sodium Chloride 0.9% IV 125 mls/hr .Q8H TERRENCE Administration Morphine Sulfate 2 mg 10/29/22 04:39 10/29/22 19:48 Morphine 4 Mg/Ml Sdv 1 Ml IVP 2 mg Q4H PRN Administration SEVERE PAIN Ondansetron HCl 4 mg 10/29/22 04:39 10/30/22 00:44 Ondansetron 2 Mg /Ml Sdv 2 Ml IVP 4 mg Q6H PRN Administration vomiting, or N/V if npo Pantoprazole Sodiu m 40 mg 10/29/22 04:45 10/30/22 05:00 Pantoprazole 40 Mg Sdv IVP 40 mg Q24H TERRENCE Administration Vitals/I&O/Wt Last Vital Signs Temp 97.8 F 11/03/22 16:39 Pulse 80 11/03/22 16:39 Resp 16 11/03/22 16:39 BP 114/77 11/03/22 16:39 Pulse Ox 94 11/03/22 16:39 O2 Del Method Room Air 11/03/22 12:00 Physical Exam Narrative: General: No acute distress, AO x3 HEENT: PERRLA, pupils bilaterally equal and reactive, pallors not present Chest: Normal vesicular breath sounds, no added sounds, equal good air entry bilaterally CVS: S1-S2 regular, no murmurs, no tachycardia, no gallops, no rubs Abdomen: Soft, nontender, no organomegaly, bowel sounds present Neuro: No focal deficits, no facial deformity, AO x3, power 5/5 in all limbs Data 11/01/22 02:55 11/01/22 02:55 A&P Assessment and plan (1) Pancreatitis: Pain is continued, will add fentanyl 25mcg transdermal patch. Less nauseous, has not had any vomiting, however does not wish to advnce diet yet Continue Toradol 15 mg IV every 8 hours for pain management in addition to iv morphine Nausea control with IV Zofran and Reglan alternating Patient is passing flatus, however has not had a bowel movement. X-ray of her abdomen performed on 10/31 showed nonspecific nonobstructive bowel gas pattern with moderate stool in the right colon. No ileus or evy obstruction Unclear precipitant of acute pancreatitis currently. Plan Full code Lovenox for DVT prophylaxis Continue Protonix 40 mg IV every 24 hours Attestations Medical Necessity Statement*: pain management needs to be optimized, add fentanyl patch , needs to advnace diet Coding Level of Care Code Acute Code for Chg Fwd Diagnoses Pancreatitis K85.90
[2022-11-01] MEDS: acetaminophen 325 mg Tablet 650 MG PO (22:22)
[2022-11-02] VITALS (7 sets, daily range): BP systolic 108–128; BP diastolic 73–81; PULSE 69–79; RESP 16–22; TEMP 36.5–37; O2SAT 94–97
[2022-11-02] MEDS: morphine 4 mg/mL SDV 1 mL 2 MG IVP (03:12)
[2022-11-02] MEDS: pantoprazole 40 mg SDV IVP (04:40)
[2022-11-02] MEDS: sodium chloride 0.9% 1,000 ML 125 ML IV ×2 (05:22→16:16)
[2022-11-02] MEDS: enoxaparin 40 mg/0.4 mL Syringe SUBCUT (05:22)
[2022-11-02] MEDS: acetaminophen 325 mg Tablet 650 MG PO (05:27)
[2022-11-02] MEDS: polyethylene glycol 3350 Pkt 17 gm PO (08:17)
[2022-11-02] MEDS: ketorolac 30 mg/mL INJ 15 MG IVP ×2 (08:19→21:03)
[2022-11-02 12:01] LABS: COMPLEMENT COMPONENT C3C 137 mg/dL (82-185); COMPLEMENT COMPONENT C4C 25 mg/dL (15-53)
[2022-11-02 12:19] LABS: COMPLEMENT, TOTAL (CH50) 54 U/mL (31-60)
[2022-11-02 14:50] LABS: CENTROMERE B ANTIBODY <1.0 NEG AI (<1.0 NEG); JO-1 ANTIBODY <1.0 NEG AI (<1.0 NEG); RNP ANTIBODY <1.0 NEG AI (<1.0 NEG); SCL-70 ANTIBODY <1.0 NEG AI (<1.0 NEG); SJOGREN'S ANTIBODY (SS-A) <1.0 NEG AI (<1.0 NEG); SM ANTIBODY <1.0 NEG AI (<1.0 NEG); SS-B <1.0 NEG AI (<1.0 NEG)
--- NOTE | 2022-11-02 14:54 | P.PN_ITS ---
Subjective Subjective: Pain is better controlled today after starting fentanyl patch yesterday. She is able to tolerate clears, diet has been advanced to GI soft today. Afebrile, hemodynamically stable, passing flatus but has not had a bowel movement yet. Does not wish to try an enema Medications: Reviewed: Yes Medication Review Details: Generic Name Dose Route Start Last Admin Trade Name Freq PRN Reason Stop Dose Admin Acetaminophen 650 mg 10/29/22 04:39 10/29/22 08:30 Acetaminophen 32 5 Mg Tablet PO 650 mg Q6H PRN Administration Mild/Mod Pain Or Temp >/= 101 Hydrocodone Bitart /Acetaminophen 1 tab 10/29/22 08:48 10/30/22 15:05 Hydrocodone-Acet aminophen 5-325 Mg Tablet PO 1 tab Q4H PRN Administration MODERATE PAIN Enoxaparin Sodium 40 mg 10/29/22 04:45 10/30/22 04:45 Enoxaparin 40 Mg /0.4 Ml Syringe SUBCUT 40 mg Q24H TERRENCE Administration Sodium Chloride 1,000 mls @ 125 m ls/hr 10/29/22 04:45 10/30/22 14:50 Sodium Chloride 0.9% IV 125 mls/hr .Q8H TERRENCE Administration Morphine Sulfate 2 mg 10/29/22 04:39 10/29/22 19:48 Morphine 4 Mg/Ml Sdv 1 Ml IVP 2 mg Q4H PRN Administration SEVERE PAIN Ondansetron HCl 4 mg 10/29/22 04:39 10/30/22 00:44 Ondansetron 2 Mg /Ml Sdv 2 Ml IVP 4 mg Q6H PRN Administration vomiting, or N/V if npo Pantoprazole Sodiu m 40 mg 10/29/22 04:45 10/30/22 05:00 Pantoprazole 40 Mg Sdv IVP 40 mg Q24H TERRENCE Administration Vitals/I&O/Wt Last Vital Signs Temp 97.7 F 11/02/22 13:50 Pulse 69 11/02/22 13:50 Resp 18 11/02/22 13:50 BP 124/81 11/02/22 13:50 Pulse Ox 95 11/02/22 13:50 O2 Del Method Room Air 11/02/22 13:50 07/25/23 07/26/23 07/26/23 22:59 06:59 14:59 Intake Total 1240 / 2720 887.5 / 3607.5 720 / 720 Output Total 300 / 600 300 / 900 Balance 940 / 2120 587.5 / 2707.5 720 / 720 Physical Exam Narrative: General: Awake alert and oriented, pain is better controlled today HEENT: PERRLA, pupils bilaterally equal and reactive, pallors not present Chest: Normal vesicular breath sounds, no added sounds, equal good air entry bilaterally CVS: S1-S2 regular, no murmurs, no tachycardia, no gallops, no rubs Abdomen: Soft, mildly distended, tender to palpation in the epigastric region, bowel sounds are heard Neuro: No focal deficits, no facial deformity, AO x3, power 5/5 in all limbs Data 11/01/22 02:55 11/01/22 02:55 A&P Assessment and plan (1) Pancreatitis: Pain is better controlled after adding fentanyl patch. Less nauseous, has not had any vomiting. Advance diet from clears to GI soft today. If tolerates a diet anticipate discharge in the upcoming 24 hours. Continue Toradol 15 mg IV every 8 hours for pain management. Nausea control with IV Zofran and Reglan alternating Patient is passing flatus, however has not had a bowel movement. X-ray of her abdomen performed on showed nonspecific nonobstructive bowel gas pattern with moderate stool in the right colon. Offered enema, however patient declined at this time. States she would like to continue using the MiraLAX for now. Unclear precipitant of acute pancreatitis currently. Patient denies using any alcohol recently. Triglyceride within range. CT of the abdomen shows postcholecystectomy state without dilatation of the biliary system. LFTs returned to normal on November 01, 2022 Continue normal saline at 125 cc an hour for now. Plan Patient has questions regarding undescended testes. 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 On CT abdomen, left testis is located in the left inguinal canal with calcification. She is uncertain as to why she did not have the surgery as a child. Patient is considering gender conversion surgery eventually down the line but does not have a timeline on this currently. Discussed with her that undescended testis are a risk factor for development of testicular malignancy. We will provide referral to urology as an outpatient to consider surgical inter vention. Full code Lovenox for DVT prophylaxis Continue Protonix 40 mg IV every 24 hours Attestations Medical Necessity Statement*: Pain from acute pancreatitis is currently improving, advance diet to GI soft today. If tolerates anticipate discharge in the upcoming 24 hours Coding Level of Care Code Acute Code for Chg Fwd Diagnoses Pancreatitis K85.90
[2022-11-02 16:34] LABS: ANA SCREEN, IFA NEGATIVE (NEGATIVE)
[2022-11-03] VITALS: BP 116/74; PULSE 80; RESP 18; TEMP 36.8; O2SAT 97
[2022-11-03] MEDS: sodium chloride 0.9% 1,000 ML 125 ML IV ×2 (00:14→08:16)
[2022-11-03 04:00] VITALS: BP 136/80; PULSE 85; RESP 16; TEMP 36.4; O2SAT 95
[2022-11-03] MEDS: pantoprazole 40 mg SDV IVP (04:01)
[2022-11-03 04:16] VITALS: RESP 20
[2022-11-03] MEDS: morphine 4 mg/mL SDV 1 mL 2 MG IVP (04:16)
[2022-11-03 08:00] VITALS: BP 113/76; PULSE 66; RESP 16; TEMP 36.8; O2SAT 96
[2022-11-03] MEDS: polyethylene glycol 3350 Pkt 17 gm PO (08:16)
[2022-11-03 10:36] LABS: THYROID PEROXIDASE ANTIBODIES 293 IU/mL (<9)
[2022-11-03 12:00] VITALS: BP 114/77; PULSE 80; RESP 16; TEMP 36.6; O2SAT 94
--- NOTE | 2022-11-03 13:04 | P.DS_ITS ---
Discharge Providers Date of Admission: 10/29/22 04:10 Date of Discharge: November 03, 2022 Attending Provider at Admission: Mahad Oconnell MD Attending Provider at Discharge: Florence Alvarez MD Primary Care Provider: Juan Arredondo MD Diagnoses at Discharge Discharge Diagnosis (1) Pancreatitis: Status: Acute Reason for Visit Reason for Visit: ABD Pain Hospital Course Hospital Course Natasha Montgomery is a 52 year old? M to F transgender presenting complaining of abdominal pain for the last day, with nausea and vomiting.? Most of the discomfort is in the epigastric area.? No hematemesis, blood in stool, black or tarry stool.? Had similar episode before her gallbladder was removed. She was diagnosed acute pancreatitis based on CT imaging and lipase greater than 6000. Her pain was difficult to control during the course of admission. She needed doses of IV morphine and eventually placement of a fentanyl patch which controlled her pain. She had significant nausea until November 02 when she slowly started to improve. Combination of Toradol and opiates helped with pain management. She is currently able to tolerate a full liquid diet. Her hydration is much better. Overall she is clinically improved and able to discharge home today. Advised to slowly advance diet as tolerated over the next week. On CT imaging she was noted to have undescended testis, located in the inguinal canal with calcification. Referral provided to urology as outpatient for the same. Physical Exam Narrative: General: No acute distress, AO x3 HEENT: PERRLA, pupils bilaterally equal and reactive, pallors not present Chest: Normal vesicular breath sounds, no added sounds, equal good air entry bilaterally CVS: S1-S2 regular, no murmurs, no tachycardia, no gallops, no rubs Abdomen: Soft, nontender, no organomegaly, bowel sounds present Neuro: No focal deficits, no facial deformity, AO x3, power 5/5 in all limbs Discharge Data Studies Completed and Pending Completed Studies During Hospitalization Category Date Time Status CT abdomen pelvis w con* [id number] Stat Cat Scan 10/29/22 02:17 Completed XR abdomen 1V* [id number] Routine Exams 10/31/22 14:31 Completed Pending at discharge Category Date Time Status [place] SCREEN [[place] Profile Rheumatology] AM LABS Lab 11/01/22 02:55 Results Radiology Impressions Abdomen/Pelvis CT 10/29/22 02:17 IMPRESSION: 1. Findings consistent with mild acute pancreatitis. 2. Hypodense focus in the liver that cannot be further characterized on the current examination. In a low-risk patient, this is most likely to be benign and no further follow-up is recommended. In a high-risk patient, follow-up MRI in 3-6 months is recommended (or earlier if warranted by the patient's specific clinical circumstances). (Reference: Hermilo) 3. Nonobstructing left renal stones. 4. The left testis is located in the left inguinal canal. There is a calcification in the left inguinal canal. 5. Incidental/nonacute findings are listed in the report. COMMENTS: Consistent with the [employer]'s Incidental Findings Committee white paper (J Am Froilan Radiol 2018): Any incidental renal lesion less than 1 cm or classified as too small to characterize, or any incidental cystic renal lesion characterized as simple-appearing, is likely benign. No follow-up imaging is recommended for these lesions per consensus recommendations based on imaging criteria. REFERENCES: Hermilo WOODALL, et al. Management of Incidental Liver Lesions on CT: A White Paper of the ACR Incidental Findings Committee. J Am Froilan Radiol. 2017;14(11):1144-7794. Abdomen X-Ray 10/31/22 14:31 IMPRESSION: Nonspecific nonobstructive bowel gas pattern with moderate stool in the right colon and mild increased gas in the transverse colon. No significant ileus or obstruction otherwise. Laboratory Results WBC 8.7 10^3/uL (4.0-10.0) 11/01/22 02:55 RBC 4.51 10^6/uL (4.1-5.3) 11/01/22 02:55 Hgb 13.1 g/dL (11.7-16.6) 11/01/22 02:55 Hct 39.9 % (42.0-52.0) L 11/01/22 02:55 MCV 88.5 fl (80-94) 11/01/22 02:55 MCH 29.0 pg (28.0-34.0) 11/01/22 02:55 MCHC 32.8 g/dL (30.0-36.0) 11/01/22 02:55 RDW 13.7 % (12.1-15.1) 11/01/22 02:55 Plt Count 173 10^3/cmm (130-400) 11/01/22 02:55 MPV 9.7 fL (7.4-10.4) 11/01/22 02:55 Neut % (Auto) 77.7 % 11/01/22 02:55 Lymph % (Auto) 9.8 % 11/01/22 02:55 [place]mer % (Auto) 9.7 % 11/01/22 02:55 Eos % (Auto) 2.0 % 11/01/22 02:55 Baso % (Auto) 0.2 % 11/01/22 02:55 Neut # (Auto) 6.77 10^3/uL (1.8-7.7) 11/01/22 02:55 Lymph # (Auto) 0.9 10^3/uL (0.8-4.8) 11/01/22 02:55 [place]mer # (Auto) 0.8 10^3/uL (0.2-0.9) 11/01/22 02:55 Eos # (Auto) 0.2 10^3/uL (0.0-0.8) 11/01/22 02:55 Baso # (Auto) 0.0 10^3/uL (0.0-0.1) 11/01/22 02:55 Nucleated RBC % (auto) 0 % 11/01/22 02:55 Nucleated RBCs # 0.0 /100WBC 11/01/22 02:55 Sodium 136 mmol/L (136-145) 11/01/22 02:55 Potassium 3.7 mmol/L (3.5-5.1) 11/01/22 02:55 Chloride 108 mmol/L (98-107) H 11/01/22 02:55 Carbon Dioxide 19 mmol/L (22-29) L 11/01/22 02:55 Anion Gap 12.7 (5-19) 11/01/22 02:55 BUN 6 mg/dL (6-20) 11/01/22 02:55 Creatinine 0.8 mg/dL (0.7-1.2) 11/01/22 02:55 GFR Calculation 102.3 mL/min (90-130) 11/01/22 02:55 Glucose 140 mg/dL (65-115) H 11/01/22 02:55 Calculated Osmolality 282 mOsm/kg (285-295) L 11/01/22 02:55 Calcium 7.5 mg/dL (8.5-10.5) L 11/01/22 02:55 Magnesium 2.0 mg/dL (1.7-2.3) 10/30/22 03:33 Total Bilirubin 0.6 mg/dL (0.15-1.2) 11/01/22 02:55 AST 17 U/L (0-40) 11/01/22 02:55 ALT 39 U/L (0-41) 11/01/22 02:55 Alkaline Phosphatase 114 U/L (40-130) 11/01/22 02:55 Total Protein 5.5 g/dL (6.6-8.7) L 11/01/22 02:55 Albumin 3.3 g/dL (3.5-5.2) L 11/01/22 02:55 Globulin 2.2 g/dL (1.3-4.6) 11/01/22 02:55 Triglycerides 130 mg/dL (0-150) 10/29/22 02:26 Lipase 296 U/L (13-60) H 10/30/22 03:33 Urine Color Yellow (Yellow) 10/29/22 02:53 Urine Appearance Clear (CLEAR) 10/29/22 02:53 Urine pH 9 (5-7) H 10/29/22 02:53 Ur Specific [place] 1.010 (1.005-1.030) 10/29/22 02:53 Urine Protein Neg (Negative) 10/29/22 02:53 Urine Glucose (UA) Norm (Normal) 10/29/22 02:53 Urine Ketones 1+ (Negative) H 10/29/22 02:53 Urine Blood Neg (Negative) 10/29/22 02:53 Urine Nitrate Negative (Negative) 10/29/22 02:53 Urine Bilirubin Neg (Negative) 10/29/22 02:53 Prot Sulfosalicylic Acd Negative (Negative) 10/29/22 02:53 Urine Urobilinogen Norm mg/dL (Negative) 10/29/22 02:53 Ur Leukocyte Esterase Trace (Negative) H 10/29/22 02:53 Urine RBC None /hpf (0-2) 10/29/22 02:53 Urine WBC 0-4 /hpf (0-5) H 10/29/22 02:53 Ur Squamous Epith Cells 5-10 /hpf (0-5) H 10/29/22 02:53 Amorphous Sediment Not Reportable 10/29/22 02:53 Urine Bacteria Trace /hpf (NONE) 10/29/22 02:53 Ethyl Alcohol < 10 mg/dL (0-10) 10/29/22 02:26 [place] IFA Animal Tis Res Negative (NEGATIVE) 11/01/22 02:55 ROYAL-1 Antibody <1.0 neg AI (<1.0 NEG) 11/01/22 02:55 SS-A Antibody <1.0 neg AI (<1.0 NEG) 11/01/22 02:55 SS-B Antibody <1.0 neg AI (<1.0 NEG) 11/01/22 02:55 Sm (Wall) Antibody <1.0 neg AI (<1.0 NEG) 11/01/22 02:55 SCORING MACHINE OPERATOR Antibody <1.0 neg AI (<1.0 NEG) 11/01/22 02:55 Scl-70 Antibody <1.0 neg AI (<1.0 NEG) 11/01/22 02:55 Centromere B Antibody <1.0 neg AI (<1.0 NEG) 11/01/22 02:55 Thyroid Peroxidase Ab 293 IU/mL (<9) H 11/01/22 02:55 Complement C3c 137 mg/dL (82-185) 11/01/22 02:55 Complement C4c 25 mg/dL (15-53) 11/01/22 02:55 CH50 Classical Pathway 54 U/mL (31-60) 11/01/22 02:55 Vitals Last Vital Signs Temp 98.2 F 11/03/22 08:00 Pulse 66 11/03/22 08:00 Resp 16 11/03/22 08:00 BP 113/76 11/03/22 08:00 Pulse Ox 96 11/03/22 08:00 O2 Del Method Room Air 11/03/22 04:00 Discharge Plan Discharge Patient Disposition: Home Condition: Stable Prescriptions: New ketorolac 10 mg tablet 10 mg PO Q8H PRN (Reason: pain) 7 Days Qty: 14 0RF Protonix 40 mg tablet,delayed release (DR/EC) 40 mg PO DAILY 28 Days Qty: 30 0RF hydrocodone-acetaminophen 5-325 mg tablet 1 tab PO Q8H PRN (Reason: pain) 7 Days Qty: 20 0RF Continued potassium chloride 20 mEq tablet extended release 20 meq PO DAILY Qty: 30 0RF ondansetron HCl 4 mg tablet 4 mg PO Q6H PRN (Reason: nausea and vomiting) Qty: 20 0RF estradiol 2 mg tablet 2 mg PO BID spironolactone 50 mg tablet 50 mg PO BID Womens Daily Gummies 200 mcg Tablet,Chewable 1 tab PO BID Gummies 400 mcg-35 mg- 25 mg-5 mg Tablet,Chewable 1 tab PO DAILY Discharge Orders: Discharge Order (Routine); Ordered 11/03/22 Ordered By: Florence Alvarez Referrals: Jimmy Soares [Referring] - (WILL CALL PATIENT WITH APPOINTMENT INFORMATION) Juan Arredondo MD [Primary Care Provider] - 11/17/22 3:15 pm Discharge Diet: Advance as tolerated Discharge Activity: Resume usual activity Patient Instructions: Hydrocodone/Acetaminophen (By mouth), Ketorolac (By mouth) (Toradol), Pantoprazole (By mouth), Pancreatitis (GEN), Opioid Safety Discharge Attestations Time Spent in Discharge Care*: greater than 30 min Quality Metrics Clinical Quality Measures [ No reported AMI, CVA or VTE this stay] Coding Level of Care Code Acute Code for g Fwd Diagnoses Pancreatitis K85.90
--- NOTE | 2022-11-03 16:37 | PC.NURSE ---
discharge instructions reviewed, pt verbalized understanding. iv removed, pt tolerated well. pt taken by wheelchair to private vehicle at 1545
[2022-11-03 16:39] VITALS: BP 114/77; PULSE 80; RESP 16; TEMP 36.6; O2SAT 94
[2022-11-11 14:45] LABS: DNA AB (DS) CRITHIDIA,IFA NEGATIVE (NEGATIVE)
--- NOTE | 2022-11-25 10:37 | PC.SOCIAL ---
Urology Referral Patient called and requested referral be sent to [facility], referral faxed at this time.
== END 2022-11-03 16:00 | disposition home or self-care (01) | DRG 440 ==
LOC: ER 03:25 → MEDSURG 04:06
PROVIDERS: Admitting Provider Internal Medicine; Emergency Provider Emergency Medicine; PCP Family Medicine; Visit Provider Student in an Organized Health Care Education/Training Program
DX: K85.90 Acute pancreatitis without necrosis or infection, unspecified (principal); F64.0 Transsexualism; Q53.9 Undescended testicle, unspecified; Z79.890 Hormone replacement therapy
CPT/HCPCS: 36415; 74018; 74177; 80053; 80307; 81001; 83690; 83735; 84478; 85025; 86160; 86162; 86235; 86255; 86376; 96372; 96374; 96375; 99285; C9113; J1170; J1650; J1885; J2270; J2405; J7030; Q9967